=== PATIENT | female | born 1950 | race Caucasian/White ===

== ENCOUNTER 2020-04-10 10:25 | Inpatient (IN) ==
[2020-04-10 10:39] VITALS: BMI 23.2
--- NOTE | 2020-04-10 11:10 | ED.ABDFE ---
HPI Time Seen Time Seen by Provider: 04/10/20 10:52 PCP Primary Care Physician: SALAZAR Complaint Chief Complaint:: PT. C/O ABDOMINAL PAIN AND N/V. ONSET OF YESTERDAY. PT. WAS SEEN AT [facility] THIS MORNING AND WAS SENT TO THE ER FOR FUR THER EVALUATION. PT. HAD CABG PERFORMED FEBRUARY 27, 2020 AT [facility] IN [place], [place]. PT. HAS HAD SWELLING TO LEGS AND HANDS SINCE SURGERY PER DAUGHTER. COVID-19 Coronavirus risk:travel/contact w/high risk person: No Has patient experienced Coronavirus symptoms: No Source History Provided: Patient and Family Member Mode of arrival Mode of Arrival: Wheelchair Timing Onset of Chief Complaint: 04/09/20 Came on: Gradually Duration How lon Duration: Days Location Location: RUQ (right flank ) Quality Quality: Sharp Modifying factors Worsening Factors: Exertion Improving Factors: Lying Still Associated signs and symptoms Associated Signs and Symptoms: Nausea and Vomiting PMH PMH Past Medical History: Yes Past Medical History: Coronary Artery Disease, Dyslipidemia, Hypertension and Renal Disease Past Surgical History: Yes Surgical History: CABG/Valve Surgery Family History History of Family Medical Conditions: Yes Family Medical History: Coronary Artery Disease and Hypertension Social History Does patient currently use any type of tobacco product: No Have you used tobacco products in the last 12 months: No Type of Tobacco Use: None Does any household member use tobacco: No Alcohol Use: None Do you use any recreational Drugs:: No Lives With: Family Lives Where: Home Travel Risk Coronavirus risk:travel/contact w/high risk person: No Has patient experienced Coronavirus symptoms: No Infectious screening In the last 2 months have you had wt loss of >10#?: NO Have you had fever, night sweats or hemotysis?: No Have you traveled outside the country in the last 6 months?: No Isolation: Standard ROS Review of Systems Cardiovascular: Edema Gastrointestinal/Abdominal: Abdominal Pain, Nausea and Vomiting PE Vital Signs Vitals: Temperature 98.1 F Pulse Rate 75 Respiratory Rate 19 Blood Pressure 131/58 O2 Sat by Pulse Oximetry 96 General Limitations: No Limitations General Appearance: Alert and In No Apparent Distress Eyes Eye exam: PERRL ENT ENT Exam: Mucous Membranes Moist Chest Chest Inspection: Normal Inspection Respiratory Respiratory Exam: Normal Lung Sounds Bilat Cardiovascular Cardiovascular Exam: +S1 and +S2 Abdominal Exam Abdominal Exam: Normal Inspection, Normal Bowel Sounds, Soft, Distention and Tenderness Abdominal Tenderness: RUQ, Diffuse and Moderate Extremeties Extremities Exam: Edema Neurologic Neurological Exam: Alert Skin Skin Exam: Dry MDM Additional Information Obtained From Additional information provided by: Old Records Differential Diagnosis Differential Diagnosis- Considerations may include:: Cholelethiasis, Constip ation, Diverticular disease, Gastroenteritis, Ischemic Bowel and Pancreatitis COURSE Treatment Treatment: IV zofran Consultation Consultation Comments: Pt admitted to hospital after discussion with surgery Dr Lewis and Dr Aguilera ROR Labs Reviewed Laboratory Results Reviewed?: Yes Result Diagrams: 04/10/20 11:09 04/10/20 11:09 Laboratory: WBC 16.7 X10^3/uL (3.6-10.0) H 04/10/20 11:09 RBC 2.79 X10^6/uL (3.5-5.4) L 04/10/20 11:09 Hgb 8.3 g/dL (12.0-16.0) L 04/10/20 11:09 Hct 25.2 % (36.0-47.0) L 04/10/20 11:09 MCV 90.2 fL (80.0-100.0) 04/10/20 11:09 MCH 29.9 pg (27.0-34.0) 04/10/20 11:09 MCHC 33.1 g/dL (33.0-35.0) 04/10/20 11:09 RDW 17.7 % (11.6-16.5) H 04/10/20 11:09 Plt Count 247 X10^3/uL (150.0-450.0) 04/10/20 11:09 MPV 9.4 fL (7.4-11.0) 04/10/20 11:09 Neut % (Auto) 86.4 % (42.0-75.0) H 04/10/20 11:09 Lymph % (Auto) 7.7 % (21.0-51.0) L 04/10/20 11:09 [place] % (Auto) 5.8 % (0.0-13.0) 04/10/20 11:09 Eos % (Auto) 0.0 % (0.9-2.9) L 04/10/20 11:09 Baso % (Auto) 0.1 % (0.2-1.0) L 04/10/20 11:09 Neut # (Auto) 14.4 x10^3/uL (2.2-4.8) H 04/10/20 11:09 Lymph # (Auto) 1.3 X10^3/uL (1.3-2.9) 04/10/20 11:09 [place] # (Auto) 1.0 x10^3/uL (0.3-0.8) H 04/10/20 11:09 Eos # (Auto) 0.0 x10^3/uL (0.0-0.2) 04/10/20 11:09 Baso # (Auto) 0.0 X10^3/uL (0.0-0.1) 04/10/20 11:09 Absolute Nucleated RBC 0.0 /100WBC 04/10/20 11:09 Sodium 135 mmol/L (136-145) L 04/10/20 11:09 Corrected Sodium 135 mmol/L (136-145) L 04/10/20 11:09 Potassium 4.0 mmol/L (3.5-5.1) 04/10/20 11:09 Chloride 98 mmol/L (98-107) 04/10/20 11:09 Carbon Dioxide 32.2 mmol/L (21-32) H 04/10/20 11:09 BUN 35 mg/dL (7-18) H 04/10/20 11:09 Creatinine 2.74 mg/dL (0.55-1.02) H 04/10/20 11:09 Est GFR (MDRD) Af Amer 22 (>60) L 04/10/20 11:09 Est GFR (MDRD) Non-Af 18 (>60) L 04/10/20 11:09 Glucose 114 mg/dL (65-99) H 04/10/20 11:09 Calcium 8.9 mg/dL (8.5-10.1) 04/10/20 11:09 Corrected Calcium 10.2 mg/dL (8.5-10.1) H 04/10/20 11:09 Total Bilirubin 0.60 mg/dL (0.2-1.0) 04/10/20 11:09 AST 21 Units/L (15-37) 04/10/20 11:09 ALT 14 Units/L (12-78) 04/10/20 11:09 Alkaline Phosphatase 72 Units/L (46-116) 04/10/20 11:09 Total Protein 6.5 g/dL (6.4-8.2) 04/10/20 11:09 Albumin 2.4 g/dL (3.4-5.0) L 04/10/20 11:09 Globulin 4.1 g/dL (2.5-4.5) 04/10/20 11:09 Albumin/Globulin Ratio 0.6 Ratio (1.1-2.1) L 04/10/20 11:09 Amylase 30 Units/L (25-115) 04/10/20 11:09 Lipase 97 Units/L (73-393) 04/10/20 11:09 SARS CoV-2 RNA Rapid CONOR Negative (NEGATIVE) 04/10/20 14:50 Other Results Comments: CT of abdomen and pelvis gallbladder sludge Opioid Opioid Risk Tool Age (El box if 16-45): No History of Preadolescent Sexual Abuse: No Total: 0 Total Score Risk Category: Low Risk Copyright: Ferdinand SOMERS predicting aberrant behaviors Diagnosis Discharge Problem: Acute cholecystitis Instructions Forms: Precautions for COVID19 Patient Portal Social Distancing
[2020-04-10] MEDS ORDERED: ZOFRAN INJ 4 MG VIAL IVP ONE (11:11)
[2020-04-10] MEDS ORDERED: ZOFRAN INJ 4 MG VIAL ONE (11:12)
[2020-04-10 11:16] LABS: BASOPHILS % (AUTO) 0.1 % (0.2-1.0); HEMATOCRIT 25.2 % (36.0-47.0); HEMOGLOBIN 8.3 g/dL (12.0-16.0); LYMPHOCYTES # (AUTO) 1.3 X10^3/uL (1.3-2.9); LYMPHOCYTES % (AUTO) 7.7 % (21.0-51.0); MEAN CORPUSCULAR HEMOGLOBIN 29.9 pg (27.0-34.0); MEAN CORPUSCULAR HGB CONC 33.1 g/dL (33.0-35.0); MEAN CORPUSCULAR VOLUME 90.2 fL (80.0-100.0); MEAN PLATELET VOLUME 9.4 fL (7.4-11.0); MONOCYTES % (AUTO) 5.8 % (0.0-13.0); NEUTROPHILS # (AUTO) 14.4 x10^3/uL (2.2-4.8); NEUTROPHILS % (AUTO) 86.4 % (42.0-75.0); PLATELET COUNT 247 X10^3/uL (150.0-450.0); RED BLOOD COUNT 2.79 X10^6/uL (3.5-5.4); RED CELL DISTRIBUTION WIDTH 17.7 % (11.6-16.5); WHITE BLOOD COUNT 16.7 X10^3/uL (3.6-10.0)
[2020-04-10 11:28] LABS: ALBUMIN 2.4 g/dL (3.4-5.0); CALCIUM 8.9 mg/dL (8.5-10.1); CARBON DIOXIDE 32.2 mmol/L (21-32); COR CA(FOR HYPOALB) 10.2 mg/dL (8.5-10.1); CREATININE 2.74 mg/dL (0.55-1.02); TOTAL PROTEIN 6.5 g/dL (6.4-8.2)
[2020-04-10 11:29] LABS: AMYLASE 30 Units/L (25-115); LIPASE 97 Units/L (73-393)
--- NOTE | 2020-04-10 14:17 | CT ---
HISTORYabdominal pain, No IV due to patient GFR 17STUDYABDOMEN W/O CONCOMPARISONNone availableTECHNIQUENon-contrasted axial CT images of the abdomen and pelvis were obtained and reformatted into coronal and sagittal planes for further evaluation.Radiation dose: 422.90 mGy-cm total DLPFINDINGSSmall bibasilar effusions with adjacent atelectasis.Status post median sternotomy.Decreased attenuation of the blood in the cardiac chambers and aorta; can be seen with anemia.Atherosclerotic changes to the aorta and iliac vessels without aneurysm.Liver, spleen, pancreas and adrenal glands are unremarkable.Calcifications in the wall of the gallbladder with no calcified gallstones identified.Possible sludge in the gallbladder.Mild nonspecific edema in the upper mesentery and gallbladder fossa.Nonobstructing 5 mm calculus in the lower pole of the left kidney.Otherwise, unremarkable appearance of the kidneys.No hydronephrosis, hydroureter or ureteral calculus.Urinary bladder appears normal.Reproductive structures are unremarkable for patient age.Trace fluid in the pelvis.Colonic diverticulosis without diverticulitis.Unremarkable appearance of the small bowel.No free air.No adenopathy.No acute osseous abnormality.IMPRESSION1. Possible sludge in the gallbladder with a partially calcified gallbladder wall (Porcelain gallbladder) and a small amount of pericholecystic fluid. Correlation for right upper quadrant symptoms are recommended to exclude acute cholecystitis.2. Colonic diverticulosis without diverticulitis.3. Small bilateral layering pleural effusions likely represent the sequela of cardiogenic edema.4. Decreased attenuation of the blood in the cardiac chambers and aorta can represent anemia; correlate clinically.5. Nonobstructing 5 mm left nephrolith.Electronically signed by: Miki Elliott (Apr 10, 2020 14:16:29)
[2020-04-10] MEDS ORDERED: PLAVIX PO SCH (15:12)
[2020-04-10] MEDS: APRESOLINE TAB 25 MG PO SCH ×2 (16:45→21:28)
[2020-04-10] MEDS: BUMEX TAB 1 MG PO SCH (16:45)
[2020-04-10] MEDS: LIPITOR TAB 40 MG PO SCH (16:46)
[2020-04-10] MEDS: SYNTHROID 88 mcg TAB PO SCH (16:46)
[2020-04-10] MEDS: MAG-OX TAB PO SCH (16:46)
[2020-04-10] MEDS: FLOMAX PO SCH (16:46)
[2020-04-10] MEDS: ZOSYN VIAL 2.25 GRAMS 2.25 G in NS 100 ML IV + SPIKE MINIBAG* 100 ML IV SCH ×2 (16:46→21:29)
[2020-04-10] MEDS: COREG TAB 12.5 MG PO SCH (21:29)
[2020-04-11] MEDS: ZOSYN VIAL 2.25 GRAMS 2.25 G in NS 100 ML IV + SPIKE MINIBAG* 100 ML IV SCH (05:16)
[2020-04-11 06:54] LABS: BASOPHILS % (AUTO) 0.1 % (0.2-1.0); EOSINOPHILS % (AUTO) 0.1 % (0.9-2.9); HEMATOCRIT 23.7 % (36.0-47.0); HEMOGLOBIN 7.7 g/dL (12.0-16.0); LYMPHOCYTES # (AUTO) 1.6 X10^3/uL (1.3-2.9); LYMPHOCYTES % (AUTO) 8.9 % (21.0-51.0); MEAN CORPUSCULAR HEMOGLOBIN 29.5 pg (27.0-34.0); MEAN CORPUSCULAR HGB CONC 32.7 g/dL (33.0-35.0); MEAN CORPUSCULAR VOLUME 90.4 fL (80.0-100.0); MEAN PLATELET VOLUME 10.1 fL (7.4-11.0); MONOCYTES # (AUTO) 1.2 x10^3/uL (0.3-0.8); MONOCYTES % (AUTO) 6.9 % (0.0-13.0); NEUTROPHILS # (AUTO) 14.7 x10^3/uL (2.2-4.8); PLATELET COUNT 235 X10^3/uL (150.0-450.0); RED BLOOD COUNT 2.62 X10^6/uL (3.5-5.4); RED CELL DISTRIBUTION WIDTH 17.7 % (11.6-16.5); WHITE BLOOD COUNT 17.5 X10^3/uL (3.6-10.0)
[2020-04-11 07:08] LABS: ALANINE AMINOTRANSFERASE 10 Units/L (12-78); ALBUMIN 2.1 g/dL (3.4-5.0); ALKALINE PHOSPHATASE 71 Units/L (46-116); ASPARTATE AMINO TRANSFERASE 18 Units/L (15-37); BLOOD UREA NITROGEN 40 mg/dL (7-18); CARBON DIOXIDE 31.8 mmol/L (21-32); CHLORIDE 97 mmol/L (98-107); COR CA(FOR HYPOALB) 10.5 mg/dL (8.5-10.1); CREATININE 3.17 mg/dL (0.55-1.02); SODIUM 136 mmol/L (136-145); TOTAL PROTEIN 6.1 g/dL (6.4-8.2); eGFR NON BLACK RACES 15 (>60)
[2020-04-11] MEDS ORDERED: ZOSYN VIAL 2.25 GRAMS 2.25 G in NS 100 ML IV + SPIKE MINIBAG* 100 ML IV SCH (09:00)
[2020-04-11] MEDS: BUMEX TAB 1 MG PO SCH (10:52)
[2020-04-11] MEDS: MAG-OX TAB PO SCH (10:52)
[2020-04-11] MEDS: APRESOLINE TAB 25 MG PO SCH ×2 (10:52→22:11)
[2020-04-11] MEDS: LIPITOR TAB 40 MG PO SCH (10:52)
[2020-04-11] MEDS: FLOMAX PO SCH (10:52)
[2020-04-11] MEDS: SYNTHROID 88 mcg TAB PO SCH (10:52)
[2020-04-11] MEDS: COREG TAB 12.5 MG PO SCH ×2 (10:52→22:12)
--- NOTE | 2020-04-11 10:59 | DR.PROGNOT ---
Hospital Progress Notes - Progress Note for Day of: Progress Note Date: 04/11/20 - Chief Complaint Chief Complaint: less abdominal pain today . no nausea or vomiting . WBC 17.5. LFT normal . temp 98. - Past Medical Family Social History Past Med/Fam/Surg Hx: No changes since H&P Allergies: Allergies No Known Drug Allergies Allergy (Verified 04/10/20 10:39) - Review Of Systems ROS: No change since H&P - Vital Signs Vital Signs: Temperature 98 F Pulse Rate [Left Radial] 67 Pulse Rate 63 Respiratory Rate 14 Blood Pressure [Left Arm] 117/55 Blood Pressure 133/63 O2 Sat by Pulse Oximetry 85 - Physical Exam Oriented: Normal Eyes: Normal Ear: Normal Nose: Normal Throat: Normal Respiratory: Normal Cardiovascular: Normal : Normal GI:Auscultation: Decreased GI:Palpation: Normal GI: Tenderness: RUQ (full abdomen with RT side tenderness ..BS hypoactive ) Speech Pattern: Clear - Laboratory and Diagnostics Result Diagrams: 04/11/20 05:28 04/11/20 05:28 Labs: Laboratory WBC 17.5 X10^3/uL (3.6-10.0) H 04/11/20 05:28 RBC 2.62 X10^6/uL (3.5-5.4) L 04/11/20 05:28 Hgb 7.7 g/dL (12.0-16.0) L 04/11/20 05:28 Hct 23.7 % (36.0-47.0) L 04/11/20 05:28 MCV 90.4 fL (80.0-100.0) 04/11/20 05:28 MCH 29.5 pg (27.0-34.0) 04/11/20 05:28 MCHC 32.7 g/dL (33.0-35.0) L 04/11/20 05:28 RDW 17.7 % (11.6-16.5) H 04/11/20 05:28 Plt Count 235 X10^3/uL (150.0-450.0) 04/11/20 05:28 MPV 10.1 fL (7.4-11.0) 04/11/20 05:28 Neut % (Auto) 84.0 % (42.0-75.0) H 04/11/20 05:28 Lymph % (Auto) 8.9 % (21.0-51.0) L 04/11/20 05:28 [place] % (Auto) 6.9 % (0.0-13.0) 04/11/20 05:28 Eos % (Auto) 0.1 % (0.9-2.9) L 04/11/20 05:28 Baso % (Auto) 0.1 % (0.2-1.0) L 04/11/20 05:28 Neut # (Auto) 14.7 x10^3/uL (2.2-4.8) H 04/11/20 05:28 Lymph # (Auto) 1.6 X10^3/uL (1.3-2.9) 04/11/20 05:28 [place] # (Auto) 1.2 x10^3/uL (0.3-0.8) H 04/11/20 05:28 Eos # (Auto) 0.0 x10^3/uL (0.0-0.2) 04/11/20 05:28 Baso # (Auto) 0.0 X10^3/uL (0.0-0.1) 04/11/20 05:28 Absolute Nucleated RBC 0.0 /100WBC 04/11/20 05:28 Sodium 136 mmol/L (136-145) 04/11/20 05:28 Corrected Sodium TNP 04/11/20 05:28 Potassium 4.8 mmol/L (3.5-5.1) 04/11/20 05:28 Chloride 97 mmol/L (98-107) L 04/11/20 05:28 Carbon Dioxide 31.8 mmol/L (21-32) 04/11/20 05:28 BUN 40 mg/dL (7-18) H 04/11/20 05:28 Creatinine 3.17 mg/dL (0.55-1.02) H 04/11/20 05:28 Est GFR (MDRD) Af Amer 19 (>60) L 04/11/20 05:28 Est GFR (MDRD) Non-Af 15 (>60) L 04/11/20 05:28 Glucose 108 mg/dL (65-99) H 04/11/20 05:28 Calcium 9.0 mg/dL (8.5-10.1) 04/11/20 05:28 Corrected Calcium 10.5 mg/dL (8.5-10.1) H 04/11/20 05:28 Total Bilirubin 0.60 mg/dL (0.2-1.0) 04/11/20 05:28 AST 18 Units/L (15-37) 04/11/20 05:28 ALT 10 Units/L (12-78) L 04/11/20 05:28 Alkaline Phosphatase 71 Units/L (46-116) 04/11/20 05:28 Total Protein 6.1 g/dL (6.4-8.2) L 04/11/20 05:28 Albumin 2.1 g/dL (3.4-5.0) L 04/11/20 05:28 Globulin 4.0 g/dL (2.5-4.5) 04/11/20 05:28 Albumin/Globulin Ratio 0.5 Ratio (1.1-2.1) L 04/11/20 05:28 Amylase 30 Units/L (25-115) 04/10/20 11:09 Lipase 97 Units/L (73-393) 04/10/20 11:09 SARS CoV-2 RNA Rapid CONOR Negative (NEGATIVE) 04/10/20 14:50 - Assessment and Plan 1: abdominal pain . acute cholecystitis . recent MA and CABG surgery . same IV ATB . clear liquid . echocardiogram and biliary scan in am . - Problem Patient Problems: Patient Problems Acute cholecystitis (Acute) K81.0
--- NOTE | 2020-04-11 12:25 | DR.H&P ---
H&P History & Physical for Day of: H&P Date: 04/11/20 Chief Complaint Chief Complaint: Abdominal pain and Nausea Allergies Allergies Allergy/AdvReac Type Severity Reaction Status Date / Time No Known Drug Allergies Allergy Verified 04/10/20 10:39 History of Present Illness History of Present Illness: Pt is a 70 year old female past medical history CABG(02/27/20), Hypertension, Chronic kidney disease, presenting after having persistent nausea and abdominal pain for the past 1-2 days. She reports her pain as being sharp, aching, and in the right upper quadrant. Labs/imaging: COVID19 negative, WBC 16.7>17.5, Hgb 8.3>7.7, Plt 235, Na 136, K 4.8, Cr 2.74>3.17, G lucose 108, AST 18, ALT 10, ALP 71, Troponin negative, CXR: Cardiomegaly and pleural effusions without other acute chest process. CTAP: 1. Possible sludge in the gallbladder with a partially calcified gallbladder wall (Porcelain gallbladder) and a small amount of pericholecystic fluid. Correlation for right upper quadrant symptoms are recommended to exclude acute cholecystitis. 2.Colonic diverticulosis without diverticulitis. 3. Small bilateral layering pleural effusions likely represent the sequela of cardiogenic edema. 4.Decreased attenuation of the blood in the cardiac chambers and aorta can represent anemia; correlate clinically.5. Nonobstructing 5 mm left nephrolith. Pt was started on I V antibiotics, Zosyn, and IVF NS@ 75ml/h for dehydration and acute on chronic renal failure. Surgery was consulted for further evaluation, will follow and recommend HIDA scan and Echo. Will continue to monitor and follow up labs/imaging in the morning. Past Medical History Past Medical History: Coronary Artery Disease, Dyslipidemia, Hypertension and Renal Disease Past Surgical History Surgical History: CABG/Valve Surgery Family History Family Medical History: Hypertension Social History Does patient currently use any type of tobacco product: No Have you used tobacco products in the last 12 months: No Type of Tobacco Use: None Does any household member use tobacco: No Alcohol Use: None Drug Use: None Medications Home Medications: No Known Drug Allergies Allergy (Verified 04/10/20 10:39) CONTINUE taking the following medications atorvastatin 40 mg PO DAILY 04/10/20 [History] bumetanide 1 mg PO DAILY 04/10/20 [History] carvedilol 12.5 mg PO BID 04/10/20 [History] clopidogrel 75 mg PO DAILY 04/10/20 [History] hydralazine 25 mg PO BID 04/10/20 [History] levothyroxine 88 mcg PO DAILY 04/10/20 [History] magnesium oxide 400 mg PO DAILY 04/10/20 [History] nitroglycerin 0.4 mg SUBLINGUAL PRN PRN 04/10/20 [History] potassium chloride 20 meq PO DAILY 04/10/20 [History] tamsulosin 0.4 mg PO DAILY 04/10/20 [History] tramadol 50 mg PO PRN PRN 04/10/20 [History] zinc sulfate 220 mg PO DAILY 04/10/20 [History] Labs Result Diagrams: 04/11/20 05:28 04/11/20 05:28 Labs: Laboratory WBC 17.5 X10^3/uL (3.6-10.0) H 04/11/20 05:28 RBC 2.62 X10^6/uL (3.5-5.4) L 04/11/20 05:28 Hgb 7.7 g/dL (12.0-16.0) L 04/11/20 05:28 Hct 23.7 % (36.0-47.0) L 04/11/20 05:28 MCV 90.4 fL (80.0-100.0) 04/11/20 05:28 MCH 29.5 pg (27.0-34.0) 04/11/20 05:28 MCHC 32.7 g/dL (33.0-35.0) L 04/11/20 05:28 RDW 17.7 % (11.6-16.5) H 04/11/20 05:28 Plt Count 235 X10^3/uL (150.0-450.0) 04/11/20 05:28 MPV 10.1 fL (7.4-11.0) 04/11/20 05:28 Neut % (Auto) 84.0 % (42.0-75.0) H 04/11/20 05:28 Lymph % (Auto) 8.9 % (21.0-51.0) L 04/11/20 05:28 [place] % (Auto) 6.9 % (0.0-13.0) 04/11/20 05:28 Eos % (Auto) 0.1 % (0.9-2.9) L 04/11/20 05:28 Baso % (Auto) 0.1 % (0.2-1.0) L 04/11/20 05:28 Neut # (Auto) 14.7 x10^3/uL (2.2-4.8) H 04/11/20 05:28 Lymph # (Auto) 1.6 X10^3/uL (1.3-2.9) 04/11/20 05:28 [place] # (Auto) 1.2 x10^3/uL (0.3-0.8) H 04/11/20 05:28 Eos # (Auto) 0.0 x10^3/uL (0.0-0.2) 04/11/20 05:28 Baso # (Auto) 0.0 X10^3/uL (0.0-0.1) 04/11/20 05:28 Absolute Nucleated RBC 0.0 /100WBC 04/11/20 05:28 Sodium 136 mmol/L (136-145) 04/11/20 05:28 Corrected Sodium TNP 04/11/20 05:28 Potassium 4.8 mmol/L (3.5-5.1) 04/11/20 05:28 Chloride 97 mmol/L (98-107) L 04/11/20 05:28 Carbon Dioxide 31.8 mmol/L (21-32) 04/11/20 05:28 BUN 40 mg/dL (7-18) H 04/11/20 05:28 Creatinine 3.17 mg/dL (0.55-1.02) H 04/11/20 05:28 Est GFR (MDRD) Af Amer 19 (>60) L 04/11/20 05:28 Est GFR (MDRD) Non-Af 15 (>60) L 04/11/20 05:28 Glucose 108 mg/dL (65-99) H 04/11/20 05:28 Calcium 9.0 mg/dL (8.5-10.1) 04/11/20 05:28 Corrected Calcium 10.5 mg/dL (8.5-10.1) H 04/11/20 05:28 Total Bilirubin 0.60 mg/dL (0.2-1.0) 04/11/20 05:28 AST 18 Units/L (15-37) 04/11/20 05:28 ALT 10 Units/L (12-78) L 04/11/20 05:28 Alkaline Phosphatase 71 Units/L (46-116) 04/11/20 05:28 Total Protein 6.1 g/dL (6.4-8.2) L 04/11/20 05:28 Albumin 2.1 g/dL (3.4-5.0) L 04/11/20 05:28 Globulin 4.0 g/dL (2.5-4.5) 04/11/20 05:28 Albumin/Globulin Ratio 0.5 Ratio (1.1-2.1) L 04/11/20 05:28 Amylase 30 Units/L (25-115) 04/10/20 11:09 Lipase 97 Units/L (73-393) 04/10/20 11:09 SARS CoV-2 RNA Rapid CONOR Negative (NEGATIVE) 04/10/20 14:50 Review of Systems Constitutional: Weakness Eyes: No Symptoms Reported ENT: No Symptoms Reported Respiratory: No Symptoms Reported Cardiovascular: No Symptoms Reported Gastrointestinal: Nausea and Abdominal Pain Genitourinary: No Symptoms Reported Musculoskeletal: No Symptoms Reported Skin: No Symptoms Reported Neurological: No Symptoms Reported Physical Exam Vital Signs: Temperature 98.3 F Pulse Rate [Left Radial] 71 Pulse Rate 63 Respiratory Rate 18 Blood Pressure [Left Arm] 117/58 Blood Pressure 133/63 O2 Sat by Pulse Oximetry 90 Oriented: Normal Eyes: Normal Ear: Normal Nose: Normal Throat: Normal Respiratory: Clear Throughout Cardiovascular: Normal : Normal Auscultation: Bowel Sounds: Normal Palpation: Normal Tenderness: RUQ Skin: Normal Musculoskeletal: Normal Psychiatric: Normal Mood Description: Calm and Appropriate Affect: Normal Speech Pattern: Clear and Appropriate Assessment/Plan (1) Acute cholecystitis: Status: Acute Plan: Surgery consulted Antibiotics:Zosyn, follow up HIDA scan and Echo. (2) Acute on chronic renal failure: Status: Acute (3) Dehydration: Status: Acute Review H&P Reviewed: Yes Patient was examined?: Yes
[2020-04-11] MEDS: NS 1000 ML 1,000 ML IV SCH (12:30)
--- NOTE | 2020-04-11 12:52 | RAD ---
Chest AP portableIndication: DyspneaCOMPARISONNone availableFINDINGSThere is no pneumothorax. There is cardiomegaly with sternotomy change and bilateral effusions. Mild increased interstitial markings are noted.IMPRESSIONCardiomegaly and pleural effusions without other acute chest process.Electronically signed by: ERIC SIERRA (Apr 11, 2020 12:50:22)
[2020-04-11 13:16] LABS: CKMB % 8.3 % (<4); CREATINE KINASE 12 Units/L (26-192); CREATINE KINASE MB < 1.0 ng/mL (0-4.0); TROPONIN I < 0.02 ng/mL (0-1.5)
[2020-04-11] MEDS: ZOSYN VIAL 2.25 GRAMS 3.375 G in NS 100 ML IV + SPIKE MINIBAG* 100 ML IV SCH ×2 (14:49→22:12)
[2020-04-11] MEDS: RESTORIL CAP 15 MG PO SCH (22:12)
[2020-04-12] MEDS: NS 1000 ML 1,000 ML IV SCH ×2 (02:58→22:48)
[2020-04-12] MEDS: ZOSYN VIAL 2.25 GRAMS 3.375 G in NS 100 ML IV + SPIKE MINIBAG* 100 ML IV SCH ×3 (05:21→22:49)
--- NOTE | 2020-04-12 05:27 | RAD ---
PROCEDURE: Chest X-ray 1 View .HISTORY: Short of breath.TECHNIQUE: AP view .COMPARISON: 04/11/2020.TECHNICAL QUALITY: Satisfactory .FINDINGS:Unchanged cardiomediastinal silhouette with previous sternotomy.Normal central vascularity.Increase consolidation lung bases consistent with pneumonia. No definite pleural fluid or pneumothorax.IMPRESSION:Increasing pneumonia lung bases.Electronically signed by: Marcus Roa (Apr 12, 2020 05:26:01)
[2020-04-12 07:04] LABS: BASOPHILS % (AUTO) 0.1 % (0.2-1.0); EOSINOPHILS # (AUTO) 0.1 x10^3/uL (0.0-0.2); EOSINOPHILS % (AUTO) 0.3 % (0.9-2.9); HEMATOCRIT 21.5 % (36.0-47.0); LYMPHOCYTES # (AUTO) 1.1 X10^3/uL (1.3-2.9); LYMPHOCYTES % (AUTO) 6.4 % (21.0-51.0); MEAN CORPUSCULAR HEMOGLOBIN 29.5 pg (27.0-34.0); MEAN CORPUSCULAR HGB CONC 32.6 g/dL (33.0-35.0); MEAN CORPUSCULAR VOLUME 90.4 fL (80.0-100.0); MONOCYTES # (AUTO) 1.1 x10^3/uL (0.3-0.8); MONOCYTES % (AUTO) 6.1 % (0.0-13.0); NEUTROPHILS # (AUTO) 15.1 x10^3/uL (2.2-4.8); NEUTROPHILS % (AUTO) 87.1 % (42.0-75.0); PLATELET COUNT 226 X10^3/uL (150.0-450.0); RED BLOOD COUNT 2.38 X10^6/uL (3.5-5.4); RED CELL DISTRIBUTION WIDTH 17.8 % (11.6-16.5); WHITE BLOOD COUNT 17.4 X10^3/uL (3.6-10.0)
[2020-04-12 07:27] LABS: ALANINE AMINOTRANSFERASE 12 Units/L (12-78); ALBUMIN 1.8 g/dL (3.4-5.0); ALKALINE PHOSPHATASE 74 Units/L (46-116); ASPARTATE AMINO TRANSFERASE 25 Units/L (15-37); BLOOD UREA NITROGEN 48 mg/dL (7-18); CALCIUM 8.6 mg/dL (8.5-10.1); CHLORIDE 99 mmol/L (98-107); COR CA(FOR HYPOALB) 10.4 mg/dL (8.5-10.1); CREATININE 3.61 mg/dL (0.55-1.02); SODIUM 137 mmol/L (136-145); TOTAL PROTEIN 5.6 g/dL (6.4-8.2); eGFR NON BLACK RACES 13 (>60)
[2020-04-12] MEDS ORDERED: BENADRYL CAP/TAB 25 MG PO ONE (09:11)
[2020-04-12] MEDS ORDERED: TYLENOL 325 MG TAB PO ONE ×2 (09:12→13:47)
[2020-04-12] MEDS: APRESOLINE TAB 25 MG PO SCH ×2 (09:50→22:48)
[2020-04-12] MEDS: FLOMAX PO SCH (09:50)
[2020-04-12] MEDS: MAG-OX TAB PO SCH (09:50)
[2020-04-12] MEDS: BUMEX TAB 1 MG PO SCH (09:50)
[2020-04-12] MEDS: COREG TAB 12.5 MG PO SCH ×2 (09:50→22:49)
[2020-04-12] MEDS: SYNTHROID 88 mcg TAB PO SCH (09:50)
[2020-04-12] MEDS: LIPITOR TAB 40 MG PO SCH (09:50)
[2020-04-12] MEDS ORDERED: LASIX IVP ONE ×2 (11:07→19:37)
--- NOTE | 2020-04-12 11:08 | PCM.PROG ---
Progress Note Progress Note for Day of Date of Exam: 04/12/20 Subjective Subjective: Pt is a 70 year old female past medical history CABG(02/27/20), Hypertension, Chronic kidney disease, admitted for acute cholecystitis, pneumonia, and symptomatic anemia. Labs/imaging: COVID-19 negative, WBC 17.5>17.4, Hgb 7.7>7.0, Plt 226, Na 137, K 4.2, Cr 3.17>3.61, Glucose 98, AST 25, ALT 12, ALP 74, CXR: Increase consolidation lung bases consistent with pneumonia. No definite pleural fluid or pneumothorax. Her hospital/ treatment includes IV antibiotics, Zosyn, and IVF NS@75ml/h for dehydration and acute on chronic renal failure. She appears fluid overloaded this morning, echo this morning EF 55%, IVC dilation with moderate pleural effusion. Will change IVF to KVO and give IV Lasix 40mg x 1 dose. Will get heme occult and anemia panel for anemia. Order 2 units of packed red blood cells to be transfused after type and screen. Add Azithromycin and start on bronchodilators. Pt requiring supplemental O2. Surgery consulted, follow up recommendations and HIDA scan results. Will c ontinue to monitor and follow up labs/imaging in the morning. Past Medical Family Social History Past Med/Fam/Surg Hx: No changes since H&P Allergies: Allergies No Known Drug Allergies Allergy (Verified 04/10/20 10:39) Review of Systems ROS: No change since H&P Vital Signs and I&O's Vital Signs: Temperature 97.9 F Pulse Rate [Left Radial] 68 Pulse Rate 63 Respiratory Rate 18 Blood Pressure [Left Arm] 130/59 Blood Pressure 133/63 O2 Sat by Pulse Oximetry 100 Intake and Output: Intake & Output 04/09/20 04/10/20 04/11/20 04/12/20 23:59 23:59 23:59 23:59 Intake Total 500 / 500 1855 / 1855 700 / 700 Balance 500 / 500 1855 / 1855 700 / 700 Physical Exam Oriented: Normal Eyes: Normal Ear: Normal Nose: Normal Throat: Normal Respiratory: Normal Cardiovascular: Normal : Normal Auscultation: Bowel Sounds: Normal Tenderness: RUQ Skin: Normal Musculoskeletal: Normal Psychiatric: Normal Mood Description: Calm and Appropriate Affect: Normal Speech Pattern: Clear Laboratory and Diagnostics Result Diagrams: 04/12/20 05:55 04/12/20 05:55 Labs: Laboratory WBC 17.4 X10^3/uL (3.6-10.0) H 04/12/20 05:55 RBC 2.38 X10^6/uL (3.5-5.4) L 04/12/20 05:55 Hgb 7.0 g/dL (12.0-16.0) L 04/12/20 05:55 Hct 21.5 % (36.0-47.0) L 04/12/20 05:55 MCV 90.4 fL (80.0-100.0) 04/12/20 05:55 MCH 29.5 pg (27.0-34.0) 04/12/20 05:55 MCHC 32.6 g/dL (33.0-35.0) L 04/12/20 05:55 RDW 17.8 % (11.6-16.5) H 04/12/20 05:55 Plt Count 226 X10^3/uL (150.0-450.0) 04/12/20 05:55 MPV 10.0 fL (7.4-11.0) 04/12/20 05:55 Neut % (Auto) 87.1 % (42.0-75.0) H 04/12/20 05:55 Lymph % (Auto) 6.4 % (21.0-51.0) L 04/12/20 05:55 [place] % (Auto) 6.1 % (0.0-13.0) 04/12/20 05:55 Eos % (Auto) 0.3 % (0.9-2.9) L 04/12/20 05:55 Baso % (Auto) 0.1 % (0.2-1.0) L 04/12/20 05:55 Neut # (Auto) 15.1 x10^3/uL (2.2-4.8) H 04/12/20 05:55 Lymph # (Auto) 1.1 X10^3/uL (1.3-2.9) L 04/12/20 05:55 [place] # (Auto) 1.1 x10^3/uL (0.3-0.8) H 04/12/20 05:55 Eos # (Auto) 0.1 x10^3/uL (0.0-0.2) 04/12/20 05:55 Baso # (Auto) 0.0 X10^3/uL (0.0-0.1) 04/12/20 05:55 Absolute Nucleated RBC 0.0 /100WBC 04/12/20 05:55 Sodium 137 mmol/L (136-145) 04/12/20 05:55 Corrected Sodium TNP 04/12/20 05:55 Potassium 4.2 mmol/L (3.5-5.1) 04/12/20 05:55 Chloride 99 mmol/L (98-107) 04/12/20 05:55 Carbon Dioxide 29.0 mmol/L (21-32) 04/12/20 05:55 BUN 48 mg/dL (7-18) H 04/12/20 05:55 Creatinine 3.61 mg/dL (0.55-1.02) H 04/12/20 05:55 Est GFR (MDRD) Af Amer 16 (>60) L 04/12/20 05:55 Est GFR (MDRD) Non-Af 13 (>60) L 04/12/20 05:55 Glucose 98 mg/dL (65-99) 04/12/20 05:55 Calcium 8.6 mg/dL (8.5-10.1) 04/12/20 05:55 Corrected Calcium 10.4 mg/dL (8.5-10.1) H 04/12/20 05:55 Iron 21 ug/dL (50-175) L 04/12/20 05:55 Transferrin 84 mg/dL (202-364) L 04/12/20 05:55 Ferritin 3148 ng/mL (8-252) H 04/12/20 05:55 Total Bilirubin 0.50 mg/dL (0.2-1.0) 04/12/20 05:55 AST 25 Units/L (15-37) 04/12/20 05:55 ALT 12 Units/L (12-78) 04/12/20 05:55 Alkaline Phosphatase 74 Units/L (46-116) 04/12/20 05:55 Creatine Kinase 12 Units/L (26-192) L 04/11/20 12:45 CK-MB (CK-2) < 1.0 ng/mL (0-4.0) 04/11/20 12:45 CK/CKMB % Calc 8.3 % (<4) 04/11/20 12:45 Troponin I < 0.02 ng/mL (0-1.5) 04/11/20 12:45 Total Protein 5.6 g/dL (6.4-8.2) L 04/12/20 05:55 Albumin 1.8 g/dL (3.4-5.0) L 04/12/20 05:55 Globulin 3.8 g/dL (2.5-4.5) 04/12/20 05:55 Albumin/Globulin Ratio 0.5 Ratio (1.1-2.1) L 04/12/20 05:55 Amylase 30 Units/L (25-115) 04/10/20 11:09 Lipase 97 Units/L (73-393) 04/10/20 11:09 Vitamin B12 1327 pg/mL (193-986) H 04/12/20 05:55 Folate 4.4 ng/mL (>8.6) L 04/12/20 05:55 SARS CoV-2 RNA Rapid CONOR Negative (NEGATIVE) 04/10/20 14:50 Blood Type A POSITIVE 04/12/20 09:38 Antibody Screen Negative 04/12/20 09:38 Crossmatch See Detail 04/12/20 09:38 Plan (1) Acute cholecystitis: Status: Acute Plan: Surgery consulted Antibiotics:Zosyn, follow up HIDA scan and Echo. (2) Acute on chronic renal failure: Status: Acute (3) Dehydration: Status: Acute
[2020-04-12] MEDS ORDERED: ZITHROMAX INJ 500 MG VIAL 500 MG in NS 250 ML IV 250 ML IV SCH (12:00)
--- NOTE | 2020-04-12 12:21 | US ---
HISTORY: Abdominal pain. Abnormal gallbladder.Study: Right upper quadrant abdominal ultrasoundComparison: None available.Technique: Multiple samson scale and color flow Doppler images of the right upper quadrant were obtained.Findings:The liver [is normal in echotexture and size]. No focal intraparenchymal mass or intrahepatic biliary ductal dilatation can be observed. Several echogenic foci are seen within the thickened gallbladder wall which can be seen with cholesterol crystals or an atypical porcelain gallbladder. This should be followed up with abdominal CT imaging with IV contrast when medically feasible.The common bile duct is normal in size for age, measuring 8 mm. No pericholecystic fluid or gallbladder wall thickening can be observed]. The CBD measures within normal limits for age. The right kidney appears normal in size without focal parenchymal mass or nephrolithiasis. The right kidney measurers 9 x 4 cm. No hydronephrosis or perirenal fluid can be observed. The [pancreatic head and body are unremarkable. The pancreatic tail] is largely obscured by overlying bowel gas. No ascites is evident.IMPRESSION:Several echogenic foci are seen within the thickened gallbladder wall which can be seen with cholesterol crystals or an atypical porcelain gallbladder. This should be followed up with abdominal CT imaging with IV contrast when medically feasible.Electronically signed by: KATIE VILLAFUERTE III (Apr 12, 2020 12:19:26)
[2020-04-12] MEDS: DUONEB 0.5 MG/3 MG (3 mL) NEB SCH (12:55)
[2020-04-12] MEDS ORDERED: BENADRYL INJ 50 MG VIAL ONE (13:47)
[2020-04-12] MEDS ORDERED: NS 250 ML IV 250 ML IV ONE (13:47)
[2020-04-12] MEDS: RESTORIL CAP 15 MG PO SCH (22:49)
[2020-04-13] MEDS: DUONEB 0.5 MG/3 MG (3 mL) NEB SCH ×4 (00:31→18:09)
[2020-04-13] MEDS: NS 1000 ML 1,000 ML IV SCH ×2 (05:44→18:46)
[2020-04-13] MEDS: ZOSYN VIAL 2.25 GRAMS 3.375 G in NS 100 ML IV + SPIKE MINIBAG* 100 ML IV SCH (05:44)
[2020-04-13 07:42] LABS: ALANINE AMINOTRANSFERASE 13 Units/L (12-78); ALBUMIN 1.7 g/dL (3.4-5.0); ALKALINE PHOSPHATASE 81 Units/L (46-116); ASPARTATE AMINO TRANSFERASE 41 Units/L (15-37); BLOOD UREA NITROGEN 49 mg/dL (7-18); CALCIUM 8.3 mg/dL (8.5-10.1); CARBON DIOXIDE 26.6 mmol/L (21-32); CHLORIDE 101 mmol/L (98-107); COR CA(FOR HYPOALB) 10.1 mg/dL (8.5-10.1); CREATININE 3.53 mg/dL (0.55-1.02); SODIUM 138 mmol/L (136-145); TOTAL PROTEIN 5.6 g/dL (6.4-8.2); eGFR NON BLACK RACES 14 (>60)
[2020-04-13 07:45] LABS: BASOPHILS % (AUTO) 0.3 % (0.2-1.0); EOSINOPHILS # (AUTO) 0.2 x10^3/uL (0.0-0.2); HEMATOCRIT 33.7 % (36.0-47.0); HEMOGLOBIN 10.9 g/dL (12.0-16.0); LYMPHOCYTES # (AUTO) 1.3 X10^3/uL (1.3-2.9); LYMPHOCYTES % (AUTO) 7.9 % (21.0-51.0); MEAN CORPUSCULAR HEMOGLOBIN 28.7 pg (27.0-34.0); MEAN CORPUSCULAR HGB CONC 32.5 g/dL (33.0-35.0); MEAN CORPUSCULAR VOLUME 88.3 fL (80.0-100.0); MONOCYTES % (AUTO) 6.3 % (0.0-13.0); NEUTROPHILS # (AUTO) 13.6 x10^3/uL (2.2-4.8); NEUTROPHILS % (AUTO) 84.5 % (42.0-75.0); PLATELET COUNT 155 X10^3/uL (150.0-450.0); RED BLOOD COUNT 3.81 X10^6/uL (3.5-5.4); RED CELL DISTRIBUTION WIDTH 18.4 % (11.6-16.5); WHITE BLOOD COUNT 16.1 X10^3/uL (3.6-10.0)
--- NOTE | 2020-04-13 09:02 | RAD ---
HISTORYPNEUMONIASTUDYCHEST, 1 [id number]/11/2021FINDINGSThe trachea is midline. Patient is status post sternotomy and CABG. There is stable cardiomegaly. There are small bilateral pleural effusions unchanged since prior. There are also associated radiopacities with effacement of the diaphragm. There is no central pulmonary edema. No evidence of pneumothoraxIMPRESSIONPersistent small bilateral pleural effusions with bibasal radiopacitiesElectronically signed by: Nicki Valenzuela (Apr 13, 2020 09:00:30)
[2020-04-13] MEDS ORDERED: LASIX IVP ONE (09:20)
[2020-04-13] MEDS: ZITHROMAX INJ 500 MG VIAL 250 MG in NS 250 ML IV 250 ML IV SCH (10:16)
[2020-04-13] MEDS: APRESOLINE TAB 25 MG PO SCH (10:16)
[2020-04-13] MEDS: COREG TAB 12.5 MG PO SCH (10:17)
[2020-04-13] MEDS: FLOMAX PO SCH (10:17)
[2020-04-13] MEDS: LIPITOR TAB 40 MG PO SCH (10:17)
[2020-04-13] MEDS: BUMEX TAB 1 MG PO SCH (10:17)
[2020-04-13] MEDS: ZOSYN VIAL 3.375 GRAMS 3.375 G in NS 100 ML IV + SPIKE MINIBAG* 100 ML IV SCH ×2 (10:18→21:45)
[2020-04-13] MEDS: SYNTHROID 88 mcg TAB PO SCH (10:18)
[2020-04-13] MEDS: MAG-OX TAB PO SCH (10:18)
--- NOTE | 2020-04-13 12:41 | PCM.PROG ---
Progress Note Progress Note for Day of Date of Exam: 04/13/20 Subjective Subjective: Pt is a 70 year old female past medical history CABG(02/27/20), Hypertension, Chronic kidney disease, admitted for acute cholecystitis, pneumonia, and symptomatic anemia. Labs/imaging: COVID-19 negative, WBC 16.1, Hgb 10.9, Plt 155, Na 138, K 4.7, Cr 3.61>3.53, Glucose 89, Iron 21, Folate 4.4, AST 41, ALT 13, ALP 81, CXR: Persistent small bilateral pleural effusions with bibasilar radiopacities. Her hospital/ treatment includes IV antibiotics, Zithromax and Zosyn, Bronchodilators, and IVF NS@KVO. Pt appeared fluid overloaded yesterday, received IV lasix, and this morning CXR showing bilateral pleural effusion, will give another IV Lasix 40mg x 1. She did receive 1 unit packed red blood cells and her hemoglobin has responded accordingly. Anemia panel showing iron deficiency anemia, will need supplementation. Pt requiring supplemental O2, wean off as tolerated. Surgery consulted, follow up recommendations and HIDA scan results today. Otherwise continue current treatment plan, monitor, and follow up labs/imaging in the morning. Past Medical Family Social History Past Med/Fam/Surg Hx: No changes since H&P Allergies: Allergies No Known Drug Allergies Allergy (Verified 04/10/20 10:39) Review of Systems ROS: No change since H&P Vital Signs and I&O's Vital Signs: Temperature 97.6 F Pulse Rate [Left Radial] 64 Pulse Rate 63 Respiratory Rate 20 Blood Pressure [Left Arm] 142/65 Blood Pressure 133/63 O2 Sat by Pulse Oximetry 97 Intake and Output: Intake & Output 04/10/20 04/11/20 04/12/20 04/13/20 23:59 23:59 23:59 23:59 Intake Total 500 / 500 1855 / 1855 1500 / 1500 700 / 700 Balance 500 / 500 1855 / 1855 1500 / 1500 700 / 700 Physical Exam Oriented: Normal Eyes: Normal Ear: Normal Nose: Normal Throat: Normal Respiratory: Normal Cardiovascular: Normal : Normal Auscultation: Bowel Sounds: Normal Tenderness: RUQ Skin: Normal Musculoskeletal: Normal Psychiatric: Normal Mood Description: Calm and Appropriate Affect: Normal Speech Pattern: Clear Laboratory and Diagnostics Result Diagrams: 04/13/20 06:45 04/13/20 06:45 Labs: Laboratory WBC 16.1 X10^3/uL (3.6-10.0) H 04/13/20 06:45 RBC 3.81 X10^6/uL (3.5-5.4) 04/13/20 06:45 Hgb 10.9 g/dL (12.0-16.0) L D 04/13/20 06:45 Hct 33.7 % (36.0-47.0) L 04/13/20 06:45 MCV 88.3 fL (80.0-100.0) 04/13/20 06:45 MCH 28.7 pg (27.0-34.0) 04/13/20 06:45 MCHC 32.5 g/dL (33.0-35.0) L 04/13/20 06:45 RDW 18.4 % (11.6-16.5) H 04/13/20 06:45 Plt Count 155 X10^3/uL (150.0-450.0) 04/13/20 06:45 MPV 10.0 fL (7.4-11.0) 04/13/20 06:45 Neut % (Auto) 84.5 % (42.0-75.0) H 04/13/20 06:45 Lymph % (Auto) 7.9 % (21.0-51.0) L 04/13/20 06:45 [place] % (Auto) 6.3 % (0.0-13.0) 04/13/20 06:45 Eos % (Auto) 1.0 % (0.9-2.9) 04/13/20 06:45 Baso % (Auto) 0.3 % (0.2-1.0) 04/13/20 06:45 Neut # (Auto) 13.6 x10^3/uL (2.2-4.8) H 04/13/20 06:45 Lymph # (Auto) 1.3 X10^3/uL (1.3-2.9) 04/13/20 06:45 [place] # (Auto) 1.0 x10^3/uL (0.3-0.8) H 04/13/20 06:45 Eos # (Auto) 0.2 x10^3/uL (0.0-0.2) 04/13/20 06:45 Baso # (Auto) 0.0 X10^3/uL (0.0-0.1) 04/13/20 06:45 Absolute Nucleated RBC 0.0 /100WBC 04/13/20 06:45 Sodium 138 mmol/L (136-145) 04/13/20 06:45 Corrected Sodium TNP 04/13/20 06:45 Potassium 4.7 mmol/L (3.5-5.1) 04/13/20 06:45 Chloride 101 mmol/L (98-107) 04/13/20 06:45 Carbon Dioxide 26.6 mmol/L (21-32) 04/13/20 06:45 BUN 49 mg/dL (7-18) H 04/13/20 06:45 Creatinine 3.53 mg/dL (0.55-1.02) H 04/13/20 06:45 Est GFR (MDRD) Af Amer 16 (>60) L 04/13/20 06:45 Est GFR (MDRD) Non-Af 14 (>60) L 04/13/20 06:45 Glucose 89 mg/dL (65-99) 04/13/20 06:45 Calcium 8.3 mg/dL (8.5-10.1) L 04/13/20 06:45 Corrected Calcium 10.1 mg/dL (8.5-10.1) 04/13/20 06:45 Iron 21 ug/dL (50-175) L 04/12/20 05:55 Transferrin 84 mg/dL (202-364) L 04/12/20 05:55 Ferritin 3148 ng/mL (8-252) H 04/12/20 05:55 Total Bilirubin 1.30 mg/dL (0.2-1.0) H 04/13/20 06:45 AST 41 Units/L (15-37) H 04/13/20 06:45 ALT 13 Units/L (12-78) 04/13/20 06:45 Alkaline Phosphatase 81 Units/L (46-116) 04/13/20 06:45 Creatine Kinase 12 Units/L (26-192) L 04/11/20 12:45 CK-MB (CK-2) < 1.0 ng/mL (0-4.0) 04/11/20 12:45 CK/CKMB % Calc 8.3 % (<4) 04/11/20 12:45 Troponin I < 0.02 ng/mL (0-1.5) 04/11/20 12:45 Total Protein 5.6 g/dL (6.4-8.2) L 04/13/20 06:45 Albumin 1.7 g/dL (3.4-5.0) L 04/13/20 06:45 Globulin 3.9 g/dL (2.5-4.5) 04/13/20 06:45 Albumin/Globulin Ratio 0.4 Ratio (1.1-2.1) L 04/13/20 06:45 Amylase 30 Units/L (25-115) 04/10/20 11:09 Lipase 97 Units/L (73-393) 04/10/20 11:09 Vitamin B12 1327 pg/mL (193-986) H 04/12/20 05:55 Folate 4.4 ng/mL (>8.6) L 04/12/20 05:55 SARS CoV-2 RNA Rapid CONOR Negative (NEGATIVE) 04/10/20 14:50 Blood Type A POSITIVE 04/12/20 09:38 Antibody Screen Negative 04/12/20 09:38 Crossmatch See Detail 04/12/20 09:38 Plan (1) Acute cholecystitis: Status: Acute Plan: Surgery consulted Antibiotics:Zosyn, follow up HIDA scan and Echo. (2) Acute on chronic renal failure: Status: Acute (3) Dehydration: Status: Acute
[2020-04-13] MEDS ORDERED: MORPHINE SULFATE INJ 2 MG INJ IVP ONE (13:50)
--- NOTE | 2020-04-13 15:14 | NM ---
Nuclear medicine hepatobiliary scan with ejection fractionIndication: Acute cholecystitis suspected clinically.COMPARISONApril 12, [address] from April 10, 2020.Technique: 5.7 millicuries of technetium 99 M Choletec were given IV per protocol. Imaging performed to 1 hour, than 2 hours and then after morphine per protocol.Findings: Nonvisualized gallbladder after 1 hour, 2 hours and after morphine, with patent common bile duct, normal hepatobiliary activity and small bowel activityImpression: Findings are compatible with acute cholecystitisElectronically signed by: ERIC SIERRA (Apr 13, 2020 15:13:26)
--- NOTE | 2020-04-13 16:46 | DR.PROGNOT ---
Hospital Progress Notes - Progress Note for Day of: Progress Note Date: 04/13/20 - Chief Complaint Chief Complaint: c/o moderate abdominal pain today . no nausea or vomiting . mild peripheral edema . biliary scan : non visualization of the GB ( acute cholecystitis ). echocardiogram : 55 EF. WBC 16.1. Bilirubin 1.3 .. BUN/creat 49/3.5 ..LFT normal. temp 98. - Past Medical Family Social History Past Med/Fam/Surg Hx: No changes since H&P Allergies: Allergies No Known Drug Allergies Allergy (Verified 04/10/20 10:39) - Review Of Systems ROS: No change since H&P - Vital Signs Vital Signs: Temperature 97.6 F Pulse Rate [Left Radial] 64 Pulse Rate 63 Respiratory Rate 20 Blood Pressure [Left Arm] 142/65 Blood Pressure 133/63 O2 Sat by Pulse Oximetry 97 - Physical Exam Oriented: Normal Eyes: Normal Ear: Normal Nose: Normal Throat: Normal Respiratory: Normal Cardiovascular: Normal : Normal GI:Auscultation: Decreased GI:Palpation: Normal GI: Tenderness: RUQ Skin: Normal Musculoskeletal: Normal Psychiatric: Normal Mood Description: Calm, Appropriate Affect: Normal Speech Pattern: Clear - Laboratory and Diagnostics Result Diagrams: 04/13/20 06:45 04/13/20 06:45 Labs: Laboratory WBC 16.1 X10^3/uL (3.6-10.0) H 04/13/20 06:45 RBC 3.81 X10^6/uL (3.5-5.4) 04/13/20 06:45 Hgb 10.9 g/dL (12.0-16.0) L D 04/13/20 06:45 Hct 33.7 % (36.0-47.0) L 04/13/20 06:45 MCV 88.3 fL (80.0-100.0) 04/13/20 06:45 MCH 28.7 pg (27.0-34.0) 04/13/20 06:45 MCHC 32.5 g/dL (33.0-35.0) L 04/13/20 06:45 RDW 18.4 % (11.6-16.5) H 04/13/20 06:45 Plt Count 155 X10^3/uL (150.0-450.0) 04/13/20 06:45 MPV 10.0 fL (7.4-11.0) 04/13/20 06:45 Neut % (Auto) 84.5 % (42.0-75.0) H 04/13/20 06:45 Lymph % (Auto) 7.9 % (21.0-51.0) L 04/13/20 06:45 [place] % (Auto) 6.3 % (0.0-13.0) 04/13/20 06:45 Eos % (Auto) 1.0 % (0.9-2.9) 04/13/20 06:45 Baso % (Auto) 0.3 % (0.2-1.0) 04/13/20 06:45 Neut # (Auto) 13.6 x10^3/uL (2.2-4.8) H 04/13/20 06:45 Lymph # (Auto) 1.3 X10^3/uL (1.3-2.9) 04/13/20 06:45 [place] # (Auto) 1.0 x10^3/uL (0.3-0.8) H 04/13/20 06:45 Eos # (Auto) 0.2 x10^3/uL (0.0-0.2) 04/13/20 06:45 Baso # (Auto) 0.0 X10^3/uL (0.0-0.1) 04/13/20 06:45 Absolute Nucleated RBC 0.0 /100WBC 04/13/20 06:45 Sodium 138 mmol/L (136-145) 04/13/20 06:45 Corrected Sodium TNP 04/13/20 06:45 Potassium 4.7 mmol/L (3.5-5.1) 04/13/20 06:45 Chloride 101 mmol/L (98-107) 04/13/20 06:45 Carbon Dioxide 26.6 mmol/L (21-32) 04/13/20 06:45 BUN 49 mg/dL (7-18) H 04/13/20 06:45 Creatinine 3.53 mg/dL (0.55-1.02) H 04/13/20 06:45 Est GFR (MDRD) Af Amer 16 (>60) L 04/13/20 06:45 Est GFR (MDRD) Non-Af 14 (>60) L 04/13/20 06:45 Glucose 89 mg/dL (65-99) 04/13/20 06:45 Calcium 8.3 mg/dL (8.5-10.1) L 04/13/20 06:45 Corrected Calcium 10.1 mg/dL (8.5-10.1) 04/13/20 06:45 Iron 21 ug/dL (50-175) L 04/12/20 05:55 Transferrin 84 mg/dL (202-364) L 04/12/20 05:55 Ferritin 3148 ng/mL (8-252) H 04/12/20 05:55 Total Bilirubin 1.30 mg/dL (0.2-1.0) H 04/13/20 06:45 AST 41 Units/L (15-37) H 04/13/20 06:45 ALT 13 Units/L (12-78) 04/13/20 06:45 Alkaline Phosphatase 81 Units/L (46-116) 04/13/20 06:45 Creatine Kinase 12 Units/L (26-192) L 04/11/20 12:45 CK-MB (CK-2) < 1.0 ng/mL (0-4.0) 04/11/20 12:45 CK/CKMB % Calc 8.3 % (<4) 04/11/20 12:45 Troponin I < 0.02 ng/mL (0-1.5) 04/11/20 12:45 Total Protein 5.6 g/dL (6.4-8.2) L 04/13/20 06:45 Albumin 1.7 g/dL (3.4-5.0) L 04/13/20 06:45 Globulin 3.9 g/dL (2.5-4.5) 04/13/20 06:45 Albumin/Globulin Ratio 0.4 Ratio (1.1-2.1) L 04/13/20 06:45 Amylase 30 Units/L (25-115) 04/10/20 11:09 Lipase 97 Units/L (73-393) 04/10/20 11:09 Vitamin B12 1327 pg/mL (193-986) H 04/12/20 05:55 Folate 4.4 ng/mL (>8.6) L 04/12/20 05:55 SARS CoV-2 RNA Rapid CONOR Negative (NEGATIVE) 04/10/20 14:50 Blood Type A POSITIVE 04/12/20 09:38 Antibody Screen Negative 04/12/20 09:38 Crossmatch See Detail 04/12/20 09:38 - Assessment and Plan 1: abdominal pain . acute cholecystitis . recent MS and CABG surgery . renal failure. same IV ATB . full liquid . - Problem Patient Problems: Patient Problems Acute cholecystitis (Acute) K81.0
[2020-04-13] MEDS ORDERED: LOVENOX INJ 40 MG SYR SC SCH (17:00)
[2020-04-13] MEDS ORDERED: LOVENOX INJ 30 MG SYR SC SCH (21:00)
[2020-04-13] MEDS: RESTORIL CAP 15 MG PO SCH (21:45)
[2020-04-14] MEDS: DUONEB 0.5 MG/3 MG (3 mL) NEB SCH ×3 (00:50→15:19)
[2020-04-14] MEDS: COREG TAB 12.5 MG PO SCH ×2 (03:28→10:52)
[2020-04-14] MEDS: APRESOLINE TAB 25 MG PO SCH ×2 (03:28→10:51)
--- NOTE | 2020-04-14 06:18 | RAD ---
HISTORYShortness of breathSTUDYChest AP [id number]/12/2021FINDINGSPatient is rotated to the left. The patient is status post median sternotomy and CABG. Heart is enlarged. No congestive heart failure is noted. Haziness in the lower half of the right clayton thorax is likely due to right pleural effusion. There is increased density in the retrocardiac area of the left lower lobe obscuring the left hemidiaphragm. This could be on the b asis of effusion, infiltrate, atelectasis or combination. It is unchanged when compared with the prio r examination. Bony thorax is unremarkable.IMPRESSIONNo change cardiomegaly without congestive heart failureNo change right pleural effusionNo change persistent increased density retrocardiac area of th e left lower lobe. Differential diagnosis as aboveElectronically signed by: SATYA GALVAN (Apr 14 06:16:34)
[2020-04-14 08:26] LABS: BASOPHILS # (AUTO) 0.1 X10^3/uL (0.0-0.1); BASOPHILS % (AUTO) 0.5 % (0.2-1.0); EOSINOPHILS # (AUTO) 0.1 x10^3/uL (0.0-0.2); EOSINOPHILS % (AUTO) 0.9 % (0.9-2.9); HEMATOCRIT 33.8 % (36.0-47.0); HEMOGLOBIN 11.2 g/dL (12.0-16.0); LYMPHOCYTES # (AUTO) 1.6 X10^3/uL (1.3-2.9); LYMPHOCYTES % (AUTO) 11.3 % (21.0-51.0); MEAN CORPUSCULAR HEMOGLOBIN 29.1 pg (27.0-34.0); MEAN CORPUSCULAR HGB CONC 33.1 g/dL (33.0-35.0); MEAN CORPUSCULAR VOLUME 87.9 fL (80.0-100.0); MEAN PLATELET VOLUME 9.6 fL (7.4-11.0); MONOCYTES # (AUTO) 1.2 x10^3/uL (0.3-0.8); MONOCYTES % (AUTO) 8.5 % (0.0-13.0); NEUTROPHILS # (AUTO) 11.5 x10^3/uL (2.2-4.8); NEUTROPHILS % (AUTO) 78.8 % (42.0-75.0); PLATELET COUNT 277 X10^3/uL (150.0-450.0); RED BLOOD COUNT 3.85 X10^6/uL (3.5-5.4); RED CELL DISTRIBUTION WIDTH 18.4 % (11.6-16.5); WHITE BLOOD COUNT 14.6 X10^3/uL (3.6-10.0)
[2020-04-14 08:37] LABS: ALANINE AMINOTRANSFERASE 15 Units/L (12-78); ALBUMIN 1.9 g/dL (3.4-5.0); ALKALINE PHOSPHATASE 92 Units/L (46-116); ASPARTATE AMINO TRANSFERASE 44 Units/L (15-37); BLOOD UREA NITROGEN 48 mg/dL (7-18); CALCIUM 8.9 mg/dL (8.5-10.1); CARBON DIOXIDE 25.1 mmol/L (21-32); CHLORIDE 102 mmol/L (98-107); COR CA(FOR HYPOALB) 10.6 mg/dL (8.5-10.1); CREATININE 3.28 mg/dL (0.55-1.02); SODIUM 140 mmol/L (136-145); TOTAL PROTEIN 6.6 g/dL (6.4-8.2); eGFR NON BLACK RACES 15 (>60)
[2020-04-14] MEDS: NS 1000 ML 1,000 ML IV SCH (10:50)
[2020-04-14] MEDS: ZITHROMAX INJ 500 MG VIAL 250 MG in NS 250 ML IV 250 ML IV SCH (10:51)
[2020-04-14] MEDS: BUMEX TAB 1 MG PO SCH (10:51)
[2020-04-14] MEDS: SYNTHROID 88 mcg TAB PO SCH (10:52)
[2020-04-14] MEDS: FLOMAX PO SCH (10:52)
[2020-04-14] MEDS: MAG-OX TAB PO SCH (10:52)
[2020-04-14] MEDS: LIPITOR TAB 40 MG PO SCH (10:52)
[2020-04-14] MEDS: ZOSYN VIAL 3.375 GRAMS 3.375 G in NS 100 ML IV + SPIKE MINIBAG* 100 ML IV SCH (10:52)
--- NOTE | 2020-04-14 13:32 | W.DIS.FURT ---
Summary of Discharge Discharge Summary of Date Date of Exam: 04/14/20 Admission Date Date of Admission: 04/10/20 Admission Diagnosis Patient Problems (Updated 04/11/20 @ 13:19 by Leroy Aguilera) Acute cholecystitis (Acute) K81.0 Hospital Course: Pt is a 70 year old female past medical history CABG (02/27/20), Hypertension, Chronic kidney disease, admitted for acute cholecystitis, pneumonia(non-covid), some patchy infiltrates on right lower lobe on CXR, and symptomatic anemia. Pt was transferred to [place], [place] primarily for acute cholecystitis. 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 She had a HIDA scan performed that also confirmed acute cholecystitis. She was treated with IV antibiotics, Zithromax and Zosyn, Her wbc has been trending down, now at 14.6. She does have HEAVEN and hgb was at 7.0 she did receive 2 unit packed red blood cells and her hemoglobin responded well, stabilized at 11.2. She did have morgan on top of her chronic renal failure, her Cr has been trending down, now at 3.28. gentle hydration NS for it. Otherwise her vitals are stable, she does have a venturi mask for oxygen and her oxygen saturations are 93-94%. Pt was transferred to [facility] in [place], [place] after discussion with Dr Rothman (hospitalist) who agrees with transfer for further evaluation including surgical consult. Vital Signs: Vital Signs (72 hours) 04/11/20 16:00 04/11/20 20:00 04/12/20 00:00 Temperature 98.0 F 97.5 F L 97.9 F Pulse Rate Pulse Rate [Left Radial] 110 H 69 65 Respiratory Rate 20 20 19 Blood Pressure [Left Arm] 107/53 126/58 110/53 O2 Sat by Pulse Oximetry 95 100 100 04/12/20 04:00 04/12/20 08:00 04/12/20 12:00 Temperature 97.9 F 97.8 F 97.6 F Pulse Rate Pulse Rate [Left Radial] 68 69 66 Respiratory Rate 18 18 20 Blood Pressure [Left Arm] 130/59 142/66 139/65 O2 Sat by Pulse Oximetry 100 95 100 04/12/20 14:06 04/12/20 15:06 04/12/20 16:00 Temperature 97.5 F L Pulse Rate Pulse Rate [Left Radial] 67 Respiratory Rate 20 20 18 Blood Pressure [Left Arm] 136/60 O2 Sat by Pulse Oximetry 95 04/12/20 20:00 04/13/20 00:00 04/13/20 04:00 Temperature 97.7 F 97.7 F 98.5 F Pulse Rate Pulse Rate [Left Radial] 67 64 61 Respiratory Rate 16 11 L 20 Blood Pressure [Left Arm] 137/62 137/65 134/59 O2 Sat by Pulse Oximetry 100 97 97 04/13/20 08:00 04/13/20 14:20 04/13/20 14:50 Temperature 97.6 F Pulse Rate Pulse Rate [Left Radial] 64 Respiratory Rate 20 20 20 Blood Pressure [Left Arm] 142/65 O2 Sat by Pulse Oximetry 97 04/13/20 16:00 04/13/20 20:00 04/14/20 00:00 Temperature 97.6 F 97.3 F L 98.5 F Pulse Rate Pulse Rate [Left Radial] 68 69 68 Respiratory Rate 20 15 12 Blood Pressure [Left Arm] 142/63 146/65 136/63 O2 Sat by Pulse Oximetry 90 L 92 L 91 L 04/14/20 00:51 04/14/20 04:00 04/14/20 06:12 Temperature 97.3 F L Pulse Rate 73 77 Pulse Rate [Left Radial] 68 Respiratory Rate 15 Blood Pressure [Left Arm] 166/73 O2 Sat by Pulse Oximetry 94 L 90 L 93 L 04/14/20 08:00 Temperature 97.6 F Pulse Rate Pulse Rate [Left Radial] 68 Respiratory Rate 20 Blood Pressure [Left Arm] 141/62 O2 Sat by Pulse Oximetry 90 L Labs: Laboratory Last Values WBC 14.6 X10^3/uL (3.6-10.0) H 04/14/20 05:38 RBC 3.85 X10^6/uL (3.5-5.4) 04/14/20 05:38 Hgb 11.2 g/dL (12.0-16.0) L 04/14/20 05:38 Hct 33.8 % (36.0-47.0) L 04/14/20 05:38 MCV 87.9 fL (80.0-100.0) 04/14/20 05:38 MCH 29.1 pg (27.0-34.0) 04/14/20 05:38 MCHC 33.1 g/dL (33.0-35.0) 04/14/20 05:38 RDW 18.4 % (11.6-16.5) H 04/14/20 05:38 Plt Count 277 X10^3/uL (150.0-450.0) 04/14/20 05:38 MPV 9.6 fL (7.4-11.0) 04/14/20 05:38 Neut % (Auto) 78.8 % (42.0-75.0) H 04/14/20 05:38 Lymph % (Auto) 11.3 % (21.0-51.0) L 04/14/20 05:38 [place] % (Auto) 8.5 % (0.0-13.0) 04/14/20 05:38 Eos % (Auto) 0.9 % (0.9-2.9) 04/14/20 05:38 Baso % (Auto) 0.5 % (0.2-1.0) 04/14/20 05:38 Neut # (Auto) 11.5 x10^3/uL (2.2-4.8) H 04/14/20 05:38 Lymph # (Auto) 1.6 X10^3/uL (1.3-2.9) 04/14/20 05:38 [place] # (Auto) 1.2 x10^3/uL (0.3-0.8) H 04/14/20 05:38 Eos # (Auto) 0.1 x10^3/uL (0.0-0.2) 04/14/20 05:38 Baso # (Auto) 0.1 X10^3/uL (0.0-0.1) 04/14/20 05:38 Absolute Nucleated RBC 0.0 /100WBC 04/14/20 05:38 Sodium 140 mmol/L (136-145) 04/14/20 05:38 Corrected Sodium TNP 04/14/20 05:38 Potassium 5.3 mmol/L (3.5-5.1) H 04/14/20 05:38 Chloride 102 mmol/L (98-107) 04/14/20 05:38 Carbon Dioxide 25.1 mmol/L (21-32) 04/14/20 05:38 BUN 48 mg/dL (7-18) H 04/14/20 05:38 Creatinine 3.28 mg/dL (0.55-1.02) H 04/14/20 05:38 Est GFR (MDRD) Af Amer 18 (>60) L 04/14/20 05:38 Est GFR (MDRD) Non-Af 15 (>60) L 04/14/20 05:38 Glucose 93 mg/dL (65-99) 04/14/20 05:38 Calcium 8.9 mg/dL (8.5-10.1) 04/14/20 05:38 Corrected Calcium 10.6 mg/dL (8.5-10.1) H 04/14/20 05:38 Iron 21 ug/dL (50-175) L 04/12/20 05:55 Transferrin 84 mg/dL (202-364) L 04/12/20 05:55 Ferritin 3148 ng/mL (8-252) H 04/12/20 05:55 Total Bilirubin 0.70 mg/dL (0.2-1.0) 04/14/20 05:38 AST 44 Units/L (15-37) H 04/14/20 05:38 ALT 15 Units/L (12-78) 04/14/20 05:38 Alkaline Phosphatase 92 Units/L (46-116) 04/14/20 05:38 Creatine Kinase 12 Units/L (26-192) L 04/11/20 12:45 CK-MB (CK-2) < 1.0 ng/mL (0-4.0) 04/11/20 12:45 CK/CKMB % Calc 8.3 % (<4) 04/11/20 12:45 Troponin I < 0.02 ng/mL (0-1.5) 04/11/20 12:45 Total Protein 6.6 g/dL (6.4-8.2) 04/14/20 05:38 Albumin 1.9 g/dL (3.4-5.0) L 04/14/20 05:38 Globulin 4.7 g/dL (2.5-4.5) H 04/14/20 05:38 Albumin/Globulin Ratio 0.4 Ratio (1.1-2.1) L 04/14/20 05:38 Amylase 30 Units/L (25-115) 04/10/20 11:09 Lipase 97 Units/L (73-393) 04/10/20 11:09 Vitamin B12 1327 pg/mL (193-986) H 04/12/20 05:55 Folate 4.4 ng/mL (>8.6) L 04/12/20 05:55 SARS CoV-2 RNA Rapid CONOR Negative (NEGATIVE) 04/10/20 14:50 Blood Type A POSITIVE 04/12/20 09:38 Antibody Screen Negative 04/12/20 09:38 Crossmatch See Detail 04/12/20 09:38 Reason For Visit: PNEUMONIA,ANEMIA,ACUTE CHOLEYSTITIS Discharge Date Discharge Date: 04/14/20 Discharge Diagnosis All Active Problems (Updated 04/11/20 @ 13:19 by Leroy Aguilera) Dehydration (Acute) Acute on chronic renal failure (Acute) Acute cholecystitis (Acute) Plan of Treatment: Continue with present treatment and follow up plan. Pt is to keep follow up appointment as instructed and take medications as ordered. Discharge Medications Discharge Medications: No Known Drug Allergies Allergy (Verified 04/10/20 10:39) CONTINUE taking the following medications atorvastatin 40 mg PO DAILY 04/10/20 [History] bumetanide 1 mg PO DAILY 04/10/20 [History] carvedilol 12.5 mg PO BID 04/10/20 [History] clopidogrel 75 mg PO DAILY 04/10/20 [History] hydralazine 25 mg PO BID 04/10/20 [History] levothyroxine 88 mcg PO DAILY 04/10/20 [History] magnesium oxide 400 mg PO DAILY 04/10/20 [History] nitroglycerin 0.4 mg SUBLINGUAL PRN PRN 04/10/20 [History] potassium chloride 20 meq PO DAILY 04/10/20 [History] tamsulosin 0.4 mg PO DAILY 04/10/20 [History] tramadol 50 mg PO PRN PRN 04/10/20 [History] zinc sulfate 220 mg PO DAILY 04/10/20 [History] Discharge Disposition Discharge Disposition: Transfer to [place], [place] Discharge Condition: Guarded Discharge Plan Discharge Plan Hospital Course: Pt is a 70 year old female past medical history CABG (02/27/20), Hypertension, Chronic kidney disease, admitted for acute cholecystitis, pneumonia(non-covid), some patchy infiltrates on right lower lobe on CXR, and symptomatic anemia. Pt was transferred to [place], [place] primarily for acute cholec ystitis. 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 She had a HIDA scan performed that also confirmed acute cholecystitis. She was treated with IV antibiotics, Zithromax and Zosyn, Her wbc has been trending down, now at 14.6. She does have HEAVEN and hgb was at 7.0 she did receive 2 unit packed red blood cells and her hemoglobin responded well, stabilized at 11.2. She did have morgan on top of her chronic renal failure, her Cr has been trending down, now at 3.28. gentle hydration NS for it. Otherwise her vitals are stable, she does have a venturi mask for oxygen and her oxygen saturations are 93-94%. Pt was transferred to [facility] in [place], [place] after discussion with Dr Rothman (hospitalist) who agrees with transfer for further evaluation including surgical consult. Patient Disposition: [facility]-TRM HOSP Condition: Stable Health Concerns: Post Hospitalization: new medications and changes needed to prevent readmission or further decline. Pt educated and given instructions on all concerns. Plan of Treatment: Continue with present treatment and follow up plan. Pt is to keep follow up appointment as instructed and take medications as ordered. Prescriptions: No Action atorvastatin 40 mg tablet 40 mg PO DAILY RF: 0 carvedilol 12.5 mg tablet 12.5 mg PO BID RF: 0 hydralazine 25 mg tablet 25 mg PO BID RF: 0 clopidogrel 75 mg tablet 75 mg PO DAILY RF: 0 tramadol 50 mg tablet 50 mg PO PRN PRN (Reason: Pain) RF: 0 levothyroxine 88 mcg tablet 88 mcg PO DAILY RF: 0 potassium chloride 20 mEq tablet,ER particles/crystals 20 meq PO DAILY RF: 0 magnesium oxide 400 mg (241.3 mg magnesium) tablet 400 mg PO DAILY RF: 0 tamsulosin 0.4 mg capsule 0.4 mg PO DAILY RF: 0 nitroglycerin 0.4 mg tablet, sublingual 0.4 mg sublingual PRN PRN (Reason: Chest Pain) RF: 0 bumetanide 1 mg tablet 1 mg PO DAILY RF: 0 zinc sulfate 220 (50) mg capsule 220 mg PO DAILY RF: 0 Follow ups/Referrals Follow ups/Referrals: LUCAS LINCOLN [Primary Care Provider] - 3 days Instructions Stand Alone Forms: Excuse From Work or School, Precautions for COVID19, Patient Portal, Social Distancing
[2020-04-14] MEDS ORDERED: MORPHINE SULFATE INJ 2 MG INJ IVP ONE (14:12)
[2020-04-14 16:05] VITALS: BP 139/62
== END 2020-04-14 17:00 | disposition home or self-care (01) | DRG 194 ==
LOC: ER 10:33 → MED/SURG 10:33
PROVIDERS: ADMIT Family Medicine; ATTEND Family Medicine
DX: Z95.1 Presence of aortocoronary bypass graft; N17.8 Other acute kidney failure; N18.9 Chronic kidney disease, unspecified; K81.0 Acute cholecystitis; R13.11 Dysphagia, oral phase; R60.0 Localized edema; R26.89 Other abnormalities of gait and mobility; J18.8 Other pneumonia, unspecified organism; E86.0 Dehydration; D64.89 Other specified anemias; E78.2 Mixed hyperlipidemia; I10 Essential (primary) hypertension; R79.89 Other specified abnormal findings of blood chemistry; J90 Pleural effusion, not elsewhere classified; I25.10 Atherosclerotic heart disease of native coronary artery without angina pectoris; Z20.822 Contact with and (suspected) exposure to COVID-19; I25.2 Old myocardial infarction